=== PATIENT | female | born 1950 | race Caucasian/White ===

== ENCOUNTER 2017-05-02 10:00 | Emergency (ER) | payer BC, MEDICARE ==
[~2017-05-02] VITALS: Ht 170.2 cm; Wt 73.0 kg
[2017-05-02 10:00] VITALS: O2SAT 90
[2017-05-02] MEDS ORDERED: EPINEPHrine HCL (1:1000) 30 MG/30 ML VIAL IV ONE (10:01)
[2017-05-02] MEDS ORDERED: DOPamine INJ PREMIX 500 ML IV ONE (10:01)
[2017-05-02] MEDS ORDERED: CALCIUM CHLORIDE 10% SOLN 1 GRAM/10 ML SYR IV ONE (10:01)
[2017-05-02] MEDS ORDERED: AMIODARONE HCL 150 MG/3 ML VIAL IV ONE (10:01)
[2017-05-02] MEDS ORDERED: SODIUM BICARBONATE 8.4% INJ 50 MEQ/50 ML SYR IV ONE (10:01)
[2017-05-02] MEDS ORDERED: EPINEPHrine HCL (1:10,000) 1 MG/10 ML SYRINGE IV ONE (10:01)
[2017-05-02 10:10] VITALS: O2SAT 90
--- NOTE | 2017-05-02 10:57 | PD ---
HPI Chief Complaint: cardiopulmonary arrest Time Seen by Provider: 10:46 Travel History International Travel<30 days: No Contact w/Intl Traveler<30days: No Traveled to known affect area: No History of Present Illness HPI 66-year-old female was brought in by EMS in cardiopulmonary arrest. Patient was witnessed became unresponsive at local rehabilitation facility. Chest compressions started. EMS was called. Patient was found in asystole and then ventricular fibrillation. Patient was defibrillated and given epinephrine I/O 3 prior to arrival. Upon arrival patient unresponsive however with weak pulse. Chest compression stopped. Patient was intubated with ET tube prior to arrival. Patient status post CABG a month ago. Unable to obtain any more information. [facility] Social History Tobacco Use: No Allergies-Medications (Allergen,Severity, Reaction): Coded Allergies: No Known Allergies (Unverified , 05/02/17) Review of Systems ROS Limitations: Intubated, Unresponsive Physical Exam Narrative GENERAL: Well-nourished, well-developed patient. SKIN: Focused skin assessment warm/dry. HEAD: Normocephalic. EYES: No scleral icterus. No injection or drainage. NECK: No JVD or lymphadenopathy. CARDIOVASCULAR: bradycardia RESPIRATORY: Breath equal bilaterally with bagging GASTROINTESTINAL: Abdomen soft, nondistended. MUSCULOSKELETAL: No cyanosis, or edema. BACK: No obvious deformity. Chest wall with complete dehiscence of the surgical wound around the sternal area. No active bleeding. Patient had dressing on the wound on the right groin. Data Data Last Documented VS Vital Signs Date Time Temp Pulse Resp B/P (MAP) Pulse Ox O2 Delivery O2 Flow Rate FiO2 05/02/17 11:00 0 20 0/0 (0) 92 05/02/17 10:10 100 05/02/17 10:00 15.00 Orders Orders Chest, Single Ap (05/02/17 ) Iv Access Insert/Monitor (05/02/17 10:48) Ecg Monitoring (05/02/17 10:48) Oximetry (05/02/17 10:48) Dextrose 5% In Wate... W/Amiodarone Inj (05/02/17 11:08) Sodium Chloride 0.9% Flush (Ns Flush) (05/02/17 11:00) Epinephrine (1:1000) Inj (Adrenalin (1:1 (05/02/17 11:00) Dopamine Inj Premix (Dopamine Inj Premix (05/02/17 11:00) Terbutaline Inj (Brethine Inj) (05/02/17 11:00) MDM Medical Decision Making Medical Screen Exam Complete: Yes Emergency Medical Condition: Yes Interpretation(s) Last Impressions Chest X-Ray 05/02/17 0000 Signed Impressions: Service Date/Time: Tuesday, May 02, 2017 10:44 - CONCLUSION: Minimal parenchymal changes left base. Support apparatus in good position. Eben Barragan MD FACR Differential Diagnosis Differential diagnosis including V. fib, V. tach, asystole, PEA. Narrative Course 70-year-old female had a witnessed cardiac pulmonary arrest. CPR was started and ACLS protocol followed. Patient was brought in by EMS . Patient regained pulse in the ED. Patient however went to V. fib,, V. tach, asystole, PEA. ACLS protocol followed. Patient was resuscitated several times in the ED. Patient regained pulse between attempts. Patient coded again and was pronounced. Patient was given amiodarone IV, epinephrine IV, dopamine drip, epinephrine IV drip, and amiodarone drip during resuscitation attempts. Critical Care Narrative Aggregate critical care time was 90 minutes. Time to perform other separately billable procedures was not included in the critical care time. My time did not include minutes spent treating any other patients simultaneously or on activities that did not directly contribute to the patient's treatment. The services I provided to this patient were to treat and/or prevent clinically significant deterioration that could result in: I provided critical care services requiring my management, as noted below: Chart data review, documentation time, medication orders and management, vital sign assessments/reviewing monitor data, ordering and reviewing lab tests, ordering and interpreting/reviewing x-rays and diagnostic studies, care of the patient and discussion of the patient with the admitting physicians. Procedures Procedure Narrative CENTRAL VENOUS LINE: The site was prepped with Betadine and sterilely draped. It was infiltrated with 1% lidocaine plain. The deep vein was cannulated using normal Seldinger technique. A triple lumen central line was placed in the left femoral vein site and secured with simple interrupted suture. The site was sterilely dressed. The patient tolerated the procedure well. Diagnosis Primary Impression: Cardiopulmonary arrest Additional Impression: Status post coronary artery bypass graft Admitting Information Admitting Physician Requests: Admit Delbert Mcdonald MD May 02, 2017 10:57
[2017-05-02 11:00] VITALS: BP 0/0; PULSE 0; RESP 20; O2SAT 92
[2017-05-02] MEDS ORDERED: DOPamine INJ PREMIX 500 ML IV PRN (11:00)
[2017-05-02] MEDS ORDERED: EPINEPHrine (1:1000) INJ 2 MG in DEXTROSE 5% IN WATER INJ 250 ML IV PRN ×2 (11:00)
[2017-05-02] MEDS ORDERED: SODIUM CHLORIDE 0.9% FLUSH 10 ML FLUSH IVF PRN (11:00)
[2017-05-02] MEDS ORDERED: TERBUTALINE INJ 1 MG/ML AMP SQ PRN (11:00)
--- NOTE | 2017-05-02 11:01 | RADRPT ---
EXAM DATE/TIME: 05/02/2017 10:44 [facility] COMPARISON: No previous studies available for comparison. INDICATIONS : Unresponsive, recent CABG. MEDICAL HISTORY : Myocardial infarction. SURGICAL HISTORY : CABG. ENCOUNTER: Initial ACUITY: 1 day PAIN SCORE: Non-responsive. LOCATION: Bilateral chest FINDINGS: ET tube and pacemaker in good position. Right lung is clear. Minimal parenchymal changes left base. Compensated cardiomegaly with previous mitral valvular prosthesis repair. CONCLUSION: Minimal parenchymal changes left base. Support apparatus in good position. Eben Barragan MD FACR on May 02, 2017 at 10:55 Board Certified Radiologist. This report was verified electronically.
[2017-05-02] MEDS ORDERED: AMIODARONE INJ 450 MG in DEXTROSE 5% IN WATE(EXCEL) INJ 241 ML IV SCH ×2 (11:08)
== END 2017-05-02 17:00 | disposition expired ==
LOC: NEPE 10:00 → NEPB 17:00
DX: I46.9 Cardiac arrest, cause unspecified (principal)
CPT/HCPCS: 36556; 71010; 92950; 99291; 99292; J0171; J0282; J1265